=== PATIENT | female | born 1965 | race Caucasian/White ===

== ENCOUNTER 2018-07-24 16:29 | Emergency (ER) | payer SELFPAY ==
[2018-07-24 16:43] VITALS: BP 168/67; PULSE 90; TEMP 98.2; BMI 29.2
--- NOTE | 2018-07-24 16:48 | PDOC ---
Rapid Medical Evaluation Chief Complaint: Rash Time Seen by Provider: 07/24/18 16:44 Medical Evaluation: Allergies Allergy/AdvReac Type Severity Reaction Status Date / Time No Known Allergies Allergy Verified 07/24/18 16:38 Vital Signs Temp Pulse Resp BP Pulse Ox 98.2 F 90 17 168/67 98 07/24/18 16:39 07/24/18 16:39 07/24/18 16:39 07/24/18 16:39 07/24/18 16:39 07/24/18 16:44 I have performed a brief in-person evaluation of this patient. The patient presents with a chief complaint of: h/o HPL present with complains of 1 week h/oredness itchy rash to b/l lower leg with worsening rash to left leg around ankle with itching. pt also report red rash to back to b/l hands. Pt denies fever, chills. Pertinent physical exam findings: psoriathic plagues to anterior bernabe of b/l lower legs with diffused erythema to lateral side of left lower leg with multiple plagues to dorsal aspect of b/l hands I have ordered the following: nothing The patient will proceed to the ED for further evaluation. Discharge Disposition - Diagnosis Dermatitis - Discharge Dispostion Condition at time of disposition: Stable - Referrals - Patient Instructions - Post Discharge Activity
--- NOTE | 2018-07-24 18:35 | PDOC ---
History of Present Illness - General Chief Complaint: Rash Stated Complaint: pain on the lef side Time Seen by Provider: 07/24/18 16:44 History Source: Patient Exam Limitations: No Limitations - History of Present Illness Initial Comments: 07/24/18 18:29 52 year old female present with reports of rash to extremities and mid abdomen x 2-3 weeks. As per patient she has sensitive skins and tend to have skin flare ups. Complaining of dry skin that is itchy and becomes red and starts to ooz yellowish fluids. Patient is concerned because left lower leg has become more inflammed and red. Timing/Duration: reports: getting worse Severity: Yes: moderate Location: reports: extremities, torso Respiratory Risk Factors: reports: no cause identified Modifying Factors: improves with: antihistamine, scratching Associated Symptoms: reports: change in skin texture, rash Past History - Travel Traveled outside of the country in the last 30 days: No - Past Medical History Allergies/Adverse Reactions: Allergies Allergy/AdvReac Type Severity Reaction Status Date / Time No Known Allergies Allergy Verified 07/24/18 16:38 Home Medications: Ambulatory Orders Cephalexin [Keflex] 500 mg PO TID #21 capsule 07/24/18 Cetirizine HCl 10 mg PO DAILY #20 tablet 07/24/18 Mineral Oil/Pet Hy-Phl [Aquaphor] 1 applic TP BID #1 jar 07/24/18 Triamcinolone 0.1% Ointment [Aristocort 0.1% Ointment -] 1 applic TP BID #60 grams 07/24/18 COPD: No - Immunization History Immunization Up to Date: Yes - Suicide/Smoking/Psychosocial Hx Smoking History: Never smoked Hx Alcohol Use: No Drug/Substance Use Hx: No Review of Systems - Review of Systems Able to Perform ROS?: Yes Is the patient limited Latvian proficient: No Constitutional: No: Chills, Fever, Weakness HEENTM: No: Eye Pain, Nose Pain, Nose Congestion, Hearing Loss, Throat Swelling Respiratory: No: Cough, Orthopnea, Shortness of Breath, Productive cough Cardiac (ROS): No: Chest Pain ABD/GI: No: Abdominal Distended : No: Burning, Dysuria, Incontinence, Lesions Musculoskeletal: No: Back Pain, Muscle Weakness Integumentary: Yes: Dryness, Erythema, Pruritus. No: Bruising Neurological: No: Numbness, Tremors, Weakness Psychiatric: No: Stressors, Sleep Pattern Change Endocrine: No: Excessive Sweating, Increased Hunger, Increased Urine Hematologic/Lymphatic: No: Blood Clots *Physical Exam - Vital Signs Last Vital Signs Temp Pulse Resp BP Pulse Ox 98.2 F 90 17 168/67 98 07/24/18 16:39 07/24/18 16:39 07/24/18 16:39 07/24/18 16:39 07/24/18 16:39 - Physical Exam General Appearance: Yes: Nourished, Appropriately Dressed HEENT: positive: Pharynx Normal Neck: positive: Supple. negative: Lymphadenopathy (R), Lymphadenopathy (L) Respiratory/Chest: positive: Lungs Clear, Normal Breath Sounds Cardiovascular: positive: Regular Rhythm, Regular Rate Female Pelvic Exam: negative: adnexal tenderness Gastrointestinal/Abdominal: negative: Tenderness Extremity: positive: Normal Capillary Refill Integumentary: positive: Erythema (Dry scaly skin on both lower legs, both forearms, hands, skin dryness, erythema crusting and oozing of left lower leg) Neurologic: positive: remote sensing engineer II-XII NML intact, Fully Oriented Moderate Sedation - Procedure Monitoring Vital Signs: Procedure Monitoring Vital Signs Temperature 98.2 F 07/24/18 16:39 Pulse Rate 90 07/24/18 16:39 Respiratory Rate 17 07/24/18 16:39 Blood Pressure 168/67 07/24/18 16:39 O2 Sat by Pulse Oximetry (%) 98 07/24/18 16:39 Medical Decision Making - Medical Decision Making 07/24/18 18:35 52 year old female with pruritis and eruption of the skin. Denies fever or chills 07/25/18 13:55 Plan: keflex to treat superinfection from itching and irritating skin on left lower leg aquaphor triamcinolone for eczema *DC/Admit/Observation/Transfer Diagnosis at time of Disposition: Dermatitis Atopic dermatitis Qualifiers: Atopic dermatitis type: unspecified Qualified Code(s): L20.9 - Atopic dermatitis, unspecified - Discharge Dispostion Disposition: HOME Condition at time of disposition: Stable Decision to Admit order: No - Prescriptions Prescriptions: Cephalexin [Keflex] 500 mg PO TID #21 capsule Cetirizine HCl 10 mg PO DAILY #20 tablet Mineral Oil/Pet Hy-Phl [Aquaphor] 1 applic TP BID #1 jar Triamcinolone 0.1% Ointment [Aristocort 0.1% Ointment -] 1 applic TP BID #60 grams - Referrals Referrals: Lyndsey Morales [Staff Physician] - Call tomorrow (Call program manager environmental planning for follow up appointment ) - Patient Instructions Printed Discharge Instructions: DI for Atopic Dermatitis - Adult Additional Instructions: Please use tepid water to shower Do not itch, you may take benadryl at bedtime. Return to emergency room for worsening symptoms - Post Discharge Activity Forms/Work/School Notes: Back to Work
== END 2018-07-24 18:51 | disposition home or self-care (01) ==
LOC: JERFT 16:29
DX: L20.9 Atopic dermatitis, unspecified (principal)
CPT/HCPCS: 99281-25